=== PATIENT | female | born 1995 | race African-American/Black ===

== ENCOUNTER 2023-08-18 09:16 | Emergency (ER) | payer OTHER ==
[2023-08-18 09:26] VITALS: BP 117/70; PULSE 75; RESP 17; TEMP 98.3; BMI 23.6
[2023-08-18 10:42] LABS: BASO % 0.4 % (0-2.0); EOS % 5.1 % (0-4.5); HEMATOCRIT 32.4 % (32.4-45.2); HEMOGLOBIN 10.6 GM/dL (10.7-15.3); LYMPH % 29.4 % (8-40); MCH 28.1 pg (25.7-33.7); MCHC 32.7 g/dl (32.0-36.0); MEAN PLT VOLUME 7.6 fl (7.5-11.1); MONO % 8.1 % (3.8-10.2); PLATELET COUNT 283 10^3/uL (134-434); RBC 3.77 M/mm3 (3.60-5.2); RDW 12.7 % (11.6-15.6); WHITE BLOOD COUNT 5.6 K/mm3 (4.0-10.0)
[2023-08-18 10:49] LABS: POTASSIUM 4.2 mmol/L (3.5-5.1)
[2023-08-18 10:51] LABS: CALCIUM 8.7 mg/dL (8.5-10.1)
[2023-08-18 10:52] LABS: ALBUMIN 3.4 g/dl (3.4-5.0)
[2023-08-18 10:55] LABS: URINE APPEARANCE TURBID; URINE BILIRUBIN NEGATIVE (NEGATIVE); URINE COLOR YELLOW; URINE GLUCOSE (UA) NEGATIVE (NEGATIVE); URINE KETONE NEGATIVE (NEGATIVE); URINE LEUK ESTERASE NEGATIVE (NEGATIVE); URINE NITRITE NEGATIVE (NEGATIVE); URINE PROTEIN NEGATIVE (NEGATIVE); URINE UROBILINOGEN 0.2 mg/dL (0.2-1.0)
[2023-08-18 10:55] LABS: CREATININE 0.5 mg/dL (0.55-1.3)
[2023-08-18 10:56] LABS: BILIRUBIN,TOTAL 0.2 mg/dL (0.2-1)
[2023-08-18 11:14] LABS: BLOOD UREA NITROGEN 9.4 mg/dL (7-18)
== END 2023-08-18 15:09 | disposition home or self-care (01) ==
LOC: JER 09:16
DX: O9A.211 Injury, poisoning and certain other consequences of external causes complicating pregnancy, first trimester (principal); M54.9 Dorsalgia, unspecified; O20.8 Other hemorrhage in early pregnancy; Z3A.12 12 weeks gestation of pregnancy; W01.0XXA Fall on same level from slipping, tripping and stumbling without subsequent striking against object, initial encounter
CPT/HCPCS: 36415; 76801-TC; 80053; 81003; 84702; 85025; 86850; 86900; 86901; 87086; 99284-25